=== PATIENT | male | born 1975 | race Caucasian/White ===

== ENCOUNTER → 2023-06-23 | Outpatient (REF) | payer OTHER ==
[2023-06-23 12:50] LABS: BASO # 0.1 10^3/uL (0.0-0.2); BASO % 0.7 % (0.0-1.0); EOS # 0.1 10^3/uL (0.0-0.5); EOS % 1.2 % (0.0-3.0); HEMATOCRIT 45.2 % (42.0-52.0); HEMOGLOBIN 14.9 g/dl (13.5-17.5); LYMPH # 2.3 10^3/uL (1.5-5.0); MEAN CORPUSCULAR HEMOGLOBIN 30.2 pg (27.0-33.0); MEAN CORPUSCULAR VOLUME 91.7 fl (80.0-96.0); MONO # 0.7 10^3/uL (0.0-0.8); MONO % 9.7 % (2.0-8.0); NEUTROPHILS # 4.4 10^3/uL (1.5-8.5); NEUTROPHILS % 58.1 % (36.0-66.0); PLATELET COUNT, AUTOMATED 264 10^3/uL (150-450); RED BLOOD COUNT 4.93 10^6/uL (4.30-6.10); WHITE BLOOD COUNT 7.5 10^3/uL (4.0-10.0)
[2023-06-23 13:19] LABS: LIPASE 41 U/L (12-53)
[2023-06-23 13:21] LABS: ALBUMIN 4.1 G/DL (3.2-5.2); ALKALINE PHOSPHATASE 66 U/L (46-116); ALT/SGPT 38 U/L (7.0-40); AST/SGOT 25 U/L (<34); BILIRUBIN,TOTAL 0.5 MG/DL (0.3-1.2); BLOOD UREA NITROGEN 8 MG/DL (9-23); CALCIUM LEVEL 9.4 MG/DL (8.5-10.1); CARBON DIOXIDE LEVEL 28 MMOL/L (20-31); CHLORIDE LEVEL 106 MMOL/L (98-107); CHOLESTEROL LEVEL 158 MG/DL (<200); CHOLESTEROL RISK RATIO 4.12 (<5); CREATININE FOR GFR 0.86 MG/DL (0.70-1.30); GLOMERULAR FILTRATION RATE > 60.0 (>60); GLUCOSE, FASTING 86 MG/DL (60-100); HDL CHOLESTEROL 38.3 MG/DL (>40); LDL CHOLESTEROL 103.3 MG/DL (<100); NON-HDL-C 119.7 MG/DL; POTASSIUM SERUM 5.2 MMOL/L (3.5-5.1); SODIUM LEVEL 138 MMOL/L (136-145); TOTAL PROTEIN 7.1 G/DL (5.7-8.2); TRIGLYCERIDES LEVEL 82 MG/DL (<150)
[2023-06-23 13:22] LABS: HEMOGLOBIN A1c 5.2 % (4.0-6.0); THYROID STIMULATING HORMONE 2.098 uIU/ML (0.55-4.78)
== END ==
LOC: M LAB REF 12:02
PROVIDERS: ATTEND Physician Assistant
DX: R10.13 Epigastric pain (principal); E66.9 Obesity, unspecified

== ENCOUNTER → 2023-07-26 | Outpatient (CLI) | payer MEDICAID, OTHER | LOC: M RAD 08:58 | PROVIDERS: ATTEND Physician Assistant | DX: M54.50 Low back pain, unspecified (principal); R10.13 Epigastric pain; M47.816 Spondylosis without myelopathy or radiculopathy, lumbar region ==

== ENCOUNTER → 2023-08-25 | Day surgery (SDC) | payer OTHER ==
[~2023-08-25] VITALS: Ht 170.2 cm; Wt 88.3 kg
[~2023-08-25] MED LIST: LIDOCAINE 2% 100MG/5ML SDV (FOR ANES.) As Ordered ONE; NS 1,000 ML IV ONE; fentaNYL 100 MCG/2 ML INJECTION As Ordered ONE; propofoL 500 MG/50 ML VIAL As Ordered ONE
[2023-08-25 10:33] VITALS: BP 122/78; TEMP 96.9; O2SAT 100
== END | disposition home or self-care (01) ==
LOC: M OPP 09:59
PROVIDERS: ATTEND Surgery
DX: Z12.11 Encounter for screening for malignant neoplasm of colon (principal); Z53.21 Procedure and treatment not carried out due to patient leaving prior to being seen by health care provider

== ENCOUNTER → 2024-09-30 | Outpatient (CLI) | payer OTHER ==
[~2024-09-30] MED LIST changes: +GABA-1171 PO; -LIDOCAINE 2% 100MG/5ML SDV (FOR ANES.) As Ordered ONE; +NAPR-1405 PO; -NS 1,000 ML IV ONE; +PANT20TA6 PO; +SERT50TA29 PO; +TIZA2TA PO; -fentaNYL 100 MCG/2 ML INJECTION As Ordered ONE; -propofoL 500 MG/50 ML VIAL As Ordered ONE
== END ==
LOC: M RAD 06:28
PROVIDERS: ATTEND Neurological Surgery
DX: M50.022 Cervical disc disorder at C5-C6 level with myelopathy (principal); M48.02 Spinal stenosis, cervical region; M25.78 Osteophyte, vertebrae

== ENCOUNTER 2024-10-08 06:04 | Observation (INO) | payer OTHER ==
[~2024-10-08] VITALS: Ht 170.2 cm; Wt 88.5 kg
[2024-10-08] MEDS ORDERED: ROCURONIUM BROMIDE 50MG/5ML VIAL As Ordered ONE (06:44)
[2024-10-08] MEDS ORDERED: ACETAMINOPHEN 1000MG/100ML IV BAG As Ordered ONE (06:44)
[2024-10-08] MEDS ORDERED: dexAMETHasone 4 MG/ML 1 ML VIAL As Ordered ONE (06:45)
[2024-10-08] MEDS ORDERED: LIDOCAINE 2% 100 MG/5 ML SDV (FOR ANES.) As Ordered ONE (06:48)
[2024-10-08] MEDS ORDERED: MIDAZOLAM INJ 2 MG/2 ML VIAL As Ordered ONE (07:00)
[2024-10-08] MEDS ORDERED: HOME MED LIST COMPLETE! XX SCH (07:15)
[2024-10-08] MEDS: ceFAZolin SODIUM 2 GM in DEXTROSE 5% (D5W) ADV/MINI-BAG 50 ML IV ONE (07:30)
[2024-10-08] MEDS ORDERED: dexmedeTOMIDine (4 MCG/ML) 200 MCG/50 ML BTL As Ordered ONE (08:32)
[2024-10-08] MEDS ORDERED: ONDANSETRON 4MG 2ML VIAL As Ordered ONE (09:18)
[2024-10-08] MEDS ORDERED: PROPOFOL 1,000 MG/100 ML VIAL As Ordered ONE (09:22)
[2024-10-08] MEDS ORDERED: SUCCINYLCHOLINE 100MG/5ML SYRINGE As Ordered ONE (12:45)
[2024-10-08] MEDS ORDERED: ACETAMINOPHEN 325 MG TAB PO PRN (13:35)
[2024-10-08] MEDS: NS (Normal Saline) 0.9% 1,000 ML IV ONE (13:35)
[2024-10-08] MEDS ORDERED: CYCLOBENZAPRINE 10 MG TABLET PO PRN (13:35)
[2024-10-08] MEDS ORDERED: ONDANSETRON 4MG 2ML VIAL IV PRN (13:35)
[2024-10-08] MEDS ORDERED: traMADol 50 MG TAB PO PRN (13:55)
[2024-10-08 15:30] VITALS: BP 134/70; TEMP 97.5; O2SAT 92
[2024-10-08 16:00] VITALS: BP 131/71; TEMP 97.7; O2SAT 93
[2024-10-08] MEDS: LR 1,000 ML IV SCH (16:23)
[2024-10-08 16:40] LABS: BASO # 0.0 10^3/uL (0.0-0.2); BASO % 0.1 % (0.0-1.0); EOS # 0.0 10^3/uL (0.0-0.5); EOS % 0.0 % (0.0-3.0); LYMPH # 0.6 10^3/uL (1.5-5.0); LYMPH % 5.6 % (24.0-44.0); MONO # 0.2 10^3/uL (0.0-0.8); MONO % 2.3 % (2.0-8.0); NEUTROPHILS # 9.5 10^3/uL (1.5-8.5); NEUTROPHILS % 91.6 % (36.0-66.0); PLATELET COUNT, AUTOMATED 185 10^3/uL (150-450)
[2024-10-08 16:43] LABS: CALCIUM LEVEL 8.7 MG/DL (8.5-10.1); CARBON DIOXIDE LEVEL 24 MMOL/L (20-31); CHLORIDE LEVEL 107 MMOL/L (98-107); CREATININE FOR GFR 0.80 MG/DL (0.70-1.30); GLOMERULAR FILTRATION RATE > 90.0 (>60); POTASSIUM SERUM 4.5 MMOL/L (3.5-5.1); SODIUM LEVEL 142 MMOL/L (136-145)
[2024-10-08 17:00] VITALS: BP 130/74; TEMP 97.7; O2SAT 97
[2024-10-08] MEDS ORDERED: CHLORASEPTIC SPRAY MT PRN (17:30)
[2024-10-08 18:00] VITALS: BP 131/75; TEMP 97.7; O2SAT 97
[2024-10-08 19:00] VITALS: BP 133/77; TEMP 97.5; O2SAT 99
[2024-10-08 20:00] VITALS: BP 137/74; TEMP 98.2; O2SAT 96
[2024-10-08] MEDS: SENNA 8.6 MG TAB PO SCH (21:00)
[2024-10-08] MEDS: ceFAZolin SODIUM 2 GM in DEXTROSE 5% (D5W) ADV/MINI-BAG 50 ML IV SCH (21:08)
[2024-10-08] MEDS: DOCUSATE SODIUM 100 MG CAPSULE PO SCH (21:08)
[2024-10-08] MEDS: PANTOPRAZOLE 20 MG TAB PO SCH (21:08)
[2024-10-09 00:02] VITALS: BP 131/73; TEMP 97.4; O2SAT 97
[2024-10-09 04:14] VITALS: BP 113/75; TEMP 99.5; O2SAT 95
[2024-10-09 06:09] LABS: PLATELET COUNT, AUTOMATED 193 10^3/uL (150-450)
[2024-10-09 06:45] LABS: CALCIUM LEVEL 9.1 MG/DL (8.5-10.1); CARBON DIOXIDE LEVEL 25 MMOL/L (20-31); CHLORIDE LEVEL 106 MMOL/L (98-107); CREATININE FOR GFR 0.79 MG/DL (0.70-1.30); GLOMERULAR FILTRATION RATE > 90.0 (>60); POTASSIUM SERUM 4.5 MMOL/L (3.5-5.1); SODIUM LEVEL 142 MMOL/L (136-145)
[2024-10-09 08:00] VITALS: BP 141/88; TEMP 99.3; O2SAT 97
[2024-10-09] MEDS ORDERED: HEPARIN SOD 5000 UNITS/ML 1 ML VIAL/SYRINGE SQ SCH (21:00)
== END 2024-10-09 08:10 | disposition left against medical advice (07) ==
LOC: M SDC 06:04 → M MS5PR 06:05
PROVIDERS: ADMIT Internal Medicine; ATTEND Internal Medicine
DX: M50.022 Cervical disc disorder at C5-C6 level with myelopathy (principal); Z53.29 Procedure and treatment not carried out because of patient's decision for other reasons; K21.9 Gastro-esophageal reflux disease without esophagitis; F41.9 Anxiety disorder, unspecified; F32.A Depression, unspecified; D72.829 Elevated white blood cell count, unspecified; Z88.5 Allergy status to narcotic agent; Z79.899 Other long term (current) drug therapy; F17.210 Nicotine dependence, cigarettes, uncomplicated
CPT/HCPCS: 20931; 22551; 22845; 22853; 36415; 72040; 76000; 80048; 85025; 85027; 86850; 86900; 86901; 88304; 96365; 96366; A6024; C1713; C1762; J0131; J0330; J0665; J0690; J1100; J2250; J2405; J3010

== ENCOUNTER → 2024-11-26 | Outpatient (CLI) | payer OTHER | LOC: M RAD 09:28 | PROVIDERS: ATTEND Neurological Surgery | DX: M50.022 Cervical disc disorder at C5-C6 level with myelopathy (principal) ==

== ENCOUNTER → 2025-01-08 | Outpatient (CLI) | payer OTHER | LOC: M RAD 08:31 | PROVIDERS: ATTEND Physician Assistant | DX: Z98.1 Arthrodesis status (principal); Z53.9 Procedure and treatment not carried out, unspecified reason ==

== ENCOUNTER → 2025-01-14 | Outpatient (CLI) | payer OTHER | LOC: M RAD 12:15 | PROVIDERS: ATTEND Physician Assistant | DX: Z98.1 Arthrodesis status (principal) ==